=== PATIENT | male | born 1990 | race Caucasian/White ===

== ENCOUNTER 2021-01-18 20:35 | Emergency (ER) | payer OTHER, MEDICAID, SELFPAY ==
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
[2021-01-18 20:59] VITALS: BP 184/82; PULSE 100; RESP 18; TEMP 36.8; O2SAT 98; BMI 29.6
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
[2021-01-18] MEDS: Acetaminophen 325 MG TABLET 975 MG PO (22:36)
[2021-01-18] MEDS: Lidocaine 4 % Patch ADH..PATCH 1 PATCH TRANSDERMA (22:36)
== END 2021-01-19 00:29 | disposition home or self-care (01) ==
PROVIDERS: Emergency Provider Student in an Organized Health Care Education/Training Program
DX: S16.1XXA Strain of muscle, fascia and tendon at neck level, initial encounter (principal); S59.901A Unspecified injury of right elbow, initial encounter; M25.521 Pain in right elbow; M54.2 Cervicalgia; G44.309 Post-traumatic headache, unspecified, not intractable; V43.02XA Car driver injured in collision with other type car in nontraffic accident, initial encounter; Y93.9 Activity, unspecified; Y92.410 Unspecified street and highway as the place of occurrence of the external cause; Y99.9 Unspecified external cause status
CPT/HCPCS: 70450; 72125; 73080; 96372; 99284; J1885

== ENCOUNTER 2021-08-30 02:49 | Emergency (ER) | payer OTHER, SELFPAY ==
[2021-08-30 03:09] VITALS: BP 145/90; PULSE 100; RESP 16; TEMP 36.5; O2SAT 99; BMI 31.3
--- NOTE | 2021-08-30 04:13 | ED_ITS ---
HPI - Back Pain/Injury General Chief Complaint: Back Pain/Injury Stated Complaint: Back Pain Time Seen by Provider: 08/30/21 04:03 Source: patient Mode of arrival: ambulatory Limitations: no limitations History of Present Illness HPI Narrative: 31-year-old male who presents emergency department for evaluation of lower back pain x5 days. Patient states that he was having intercourse with his girlfriend and after having sex he developed lower back pain. He states that his girlfriend often gets kidney infections after having sex and he is concerned that he may now have a kidney fact since having sex with his gi rlfriend. He states that the pain is located in his lower back left side greater than right. He states the pain is an intermittent throbbing pain which is 7/10 at its worst. He states that his urine is now cloudy and has a foul odor to it. He denies dysuria but has had frequency. He denies any penile discharge. He denied fever, chills, nausea, vomiting. The patient states that he has a history of schizophrenia and has been compliant with his medications. He states that he does not want any pain medications. Related Data Allergies Allergy/AdvReac Type Severity Reaction Status Date / Time Penicillins [PENICILLINS] Allergy Unknown RASH Unverified 07/11/20 16:14 From [facility] Allergy Unknown UNKNOWN Uncoded 07/11/20 16:14 Review of Systems Review of Systems: Yes all other systems are reviewed and are negative [facility] Past Medical History [facility] Narrative: Past medical history: Schizophrenia. Past surgical history: None. Social history: He denies tobacco, alcohol and drug use. Medical History Back pain Social History Social History Advance Directives: No Advance Directives Information Provided: No Physical Exam Vital Signs: Vital Signs: Last Vital Signs Temp 98.4 F 08/30/21 04:37 Pulse 89 08/30/21 04:37 Resp 16 08/30/21 04:37 BP 158/89 H 08/30/21 04:37 Pulse Ox 99 08/30/21 03:09 Body Mass Index 31.3 Const: General: cooperative and no acute distress Orientation/consciousness: oriented to person and oriented to place Limitations: no limitations HENMT: Head: Yes normal to inspection, Yes normocephalic and Yes atraumatic Ears: external ears normal General nose exam: Normal external nose present Face and sinus: Yes normal facial exam Mouth: Normal oral and palatal mucosa present Throat: Yes posterior oropharynx normal Eyes: General: appearance normal, both eyes and all related structures Pupils: Equal, round and reactive pupils present Neck: Neck: Yes normal visual inspection, Yes no lymphadenopathy, Yes trachea midline and Yes supple Chest: Chest palpation & inspection: normal inspection of the chest and normal palpation of entire chest wall Resp: Effort & Inspection: normal respiratory effort and able to speak in complete sentences Auscultation: clear to auscultation bilaterally Cardio: Rate: regular rate Rhythm: regular rhythm Heart sounds: S1 normal heart sound present, S2 normal heart sound present and no murmurs GI: Inspection: Yes normal to inspection Palpation (GI): Soft to palpation, nontender and no guarding Auscultation: normal bowel sounds Back/Spine/Pelvis: Other: The patient has no vertebral tenderness, he does have tenderness palpation of the paraspinal muscles a lumbar sacral area, no spasm, no CVA tenderness. Skin: General skin exam: no rashes or lesions noted Neuro: General: oriented to person and oriented to place Cranial nerves: Yes CN's II-XII intact bilaterally and Yes Equal, round and reactive pupils present Cognition (Neuro): normal cognition Motor exam (neuro): 5/5 motor strength present throughout Extrem: General: Yes normal to inspection Psych: Appearance: grossly normal Speech and movement: Normal speech and movement present Affect: normal affect Attitude: cooperative Thought process: Normal thought process present Thought content: Normal thought content present Course Course Course Narrative: 31-year-old male who presents emergency department for evaluation of lower back pain x5 days, cloudy and foul-smelling urine, with symptoms starting after he had intercourse with his girlfriend. The patient's vital signs revealed an elevated blood pressure of 145/90 otherwise unremarkable. The patient's exam did reveal tenderness palpation of paraspinal muscles in the lumbar sacral area of his lower back. I did order a urinalysis and urine GC chlamydia. The patient does not want any pain medications at this time. 0539: The patient's urinalysis was unremarkable. Patient's presentation is more consistent with lower back strain and I did discuss this with him. The patient was advised to take Tylenol and ibuprofen for his pain. He is advised to use ice and heat as well. I did tell him that we tested him for gonorrhea and chlamydia and that these results will not be back today. MDM - Back Pain/Injury Lab Data Labs: Lab Results 08/30/21 Range/Units 04:32 Urine Color YELLOW Urine Appearance CLEAR Urine pH 5.5 (5.0-8.0) Ur Specific Pierre >= 1.030 H (1.005-1.025) Urine Protein NEG (NEG-TRACE) MG/DL Urine Glucose (UA) NEG (NEG) MG/DL Urine Ketones NEG (NEG) MG/DL Urine Blood NEG (NEG) Urine Nitrite NEG (NEG) Ur Leukocyte Esterase NEG (NEG) Discharge Plan Discharge Clinical Impression: Strain of lumbar region Patient Disposition: Home, Self-Care Instructions: Low Back Strain (ED) Additional Instructions: Your urinalysis was normal this is reassuring. This means that you do not have a kidney infection as the cause of your back pain. I did test your urine for gonorrhea and chlamydia, these are infections that you can get from having sex. These tests will be back in 2-3 days and the emergency department will call you if they are positive and you need treatment. At this time, I believe that your back pain is due to muscle strain of your lower back muscles. Back Pain Discharge Instructions: Take Motrin (ibuprofen) 200 mg pills, 3 pills every 6 hours as needed for pain. Take Tylenol (acetaminophen) 500 mg pills, 2 pills every 6 hours as needed for pain. Apply ice for 15 minutes to the area that hurts on your back, then apply a heating a pad on low for 15 minutes. Do this 4-6 times a day to help reduce the pain in your back. Continue with normal activities as tolerated since staying in bed and not moving around will make your pain worse. You can also try over the counter lidocaine patches as directed on the box to help with the pain. Please return to the Emergency Department or see your doctor immediately if your symptoms get worse or if you develop any new symptoms that are concerning you. Follow up with your doctor in 2 day. Please read the other printed discharge instructions on back pain.
[2021-08-30 04:37] VITALS: BP 158/89; PULSE 89; RESP 16; TEMP 36.9
[2021-08-30 04:38] LABS: Appearance Urine CLEAR; Color Urine YELLOW; Glucose Urine UA NEG (NEG); Leukocyte Esterase Urine NEG (NEG); Nitrite Urine NEG (NEG); PH 5.5 (5.0-8.0); Specific Gravity - Urine >= 1.030 (1.005-1.025); Urine Blood NEG (NEG); Urine Ketones NEG (NEG); Urine Protein NEG (NEG-TRACE)
[2021-08-30 06:02] VITALS: BP 136/84; PULSE 77; RESP 16; TEMP 36.9; O2SAT 98
[2021-08-30 13:34] LABS: CT PCR NOT DETECTED (Not Detect.); NG PCR NOT DETECTED (Not Detect.)
== END 2021-08-30 06:33 | disposition home or self-care (01) ==
PROVIDERS: Emergency Provider Emergency Medicine Emergency Medical Services; PCP Internal Medicine
DX: M54.50 Low back pain, unspecified (principal); Z20.2 Contact with and (suspected) exposure to infections with a predominantly sexual mode of transmission
CPT/HCPCS: 81003; 87491; 87591; 99283; 99284

== ENCOUNTER 2022-01-31 18:17 | Emergency (ER) | payer OTHER, SELFPAY ==
--- NOTE | ~2022-01-31 | XR_ITS ---
EXAMINATION: XR FINGER, RIGHT CLINICAL INFORMATION: Pain, trauma COMPARISON: None TECHNIQUE: Three views of the right small finger. XR/XR finger RT min 2V FINDINGS/IMPRESSION: No acute fracture or dislocation. Joint spaces are maintained. Soft tissues are unremarkable.
[2022-01-31 18:26] VITALS: BP 122/71; PULSE 107; RESP 18; TEMP 36.6; O2SAT 98; BMI 30.4
--- NOTE | 2022-01-31 19:09 | ED_ITS ---
HPI - Extremity Problem General Chief complaint: Extremity Injury, Upper Stated complaint: fall/R hand INJ Time Seen by Provider: 01/31/22 19:09 Source: patient Mode of arrival: ambulatory History of Present Illness HPI Narrative: 31-year-old male no significant past medical history presenting to the ED complaining of right pinky finger pain s/p trip and fall VIDEO AND SOUND RECORDER. States was carrying groceries up the stairs and tripped over sandals falling on right hand, believes he hyperextended 5th digit. Denies head trauma or LOC. Denies numbness, tingling, weakness or injury to other area MD Complaint: extremity pain Onset (ago): hour(s) Related Data Allergies Allergy/AdvReac Type Severity Reaction Status Date / Time Penicillins [PENICILLINS] Allergy Unknown RASH Unverified 07/11/20 16:14 From [facility] Allergy Unknown UNKNOWN Uncoded 07/11/20 16:14 Review of Systems Review of Systems: Constitutional: No Weight loss, No Fever, No Chills ENT/Mouth: No Ear Pain, No Nasal Congestion, No sore throat, No Rhinorrhea, No Swallowing Difficulty Cardiovascular: No Chest Pain, No SOB Respiratory: No Cough Gastrointestinal: No Nausea, No Vomiting, No Diarrhea, No Constipation, No Abdominal pain Genitourinary:, No Dysuria, No Urinary Frequency, No Hematuria,No Flank Pain Musculoskeletal: + joint pain, No Myalgias, No Joint Swelling Skin: No Skin Lesions, No rash Neuro: No Weakness, No Numbness, No Paresthesias Yes all other systems are reviewed and are negative [facility] Past Medical History Attestation statement: The following information was validated with the patient. Medical History Back pain Social History Social History Advance Directives: No Advance Directives Information Provided: No Physical Exam Vital Signs: Vital Signs: Last Vital Signs Temp 98 F 01/31/22 18:26 Pulse 107 H 01/31/22 18:26 Resp 18 01/31/22 18:26 BP 122/71 01/31/22 18:26 Pulse Ox 98 01/31/22 18:26 BMI result Body Mass Index 30.4 Const: General: cooperative, healthy appearing and no acute distress Orientation/consciousness: patient oriented x3 Limitations: no limitations HEENT: Head: Yes normal to inspection Ears: hearing grossly normal bilaterally General nose exam: Normal external nose present Face and sinus: Yes normal facial exam Eyes: General: appearance normal, both eyes and all related structures EOM: EOMs intact bilaterally Neck: Neck: Yes normal visual inspection and Yes no meningeal signs Resp: Effort & Inspection: normal respiratory effort and no respiratory distress Cardio: Rate: regular rate Peripheral pulses: radial pulses present Skin: Rashes: no rashes Wounds: no wounds Neuro: General: patient oriented x3 and no meningeal signs Gait exam (Neuro): Normal gait present Extrem: Other: Right 5th digit with mild swelling, tender at MCP. No appreciable deformity. Upon flexion appears finger may dislocate/relocate. FROM intact. NV intact. Sensation intact to light touch. No snuffbox tenderness Course Course Course Narrative: XR finger RT min 2V FINDINGS/IMPRESSION: ? No acute fracture or dislocation. Joint spaces are maintained. Soft tissues are unremarkable. >> due to instability seen on physical exam concern for tendon injury. Finger splint applied and patient given hand follow-up MDM - Extremity (Nontraumatic) MDM Narrative Medical decision making narrative: 31-year-old male no significant past medical history presenting to the ED complaining of right pinky finger pain s/p trip and fall VIDEO AND SOUND RECORDER. On exam mildly tachycardic, anxious, NAD, physical exam as above. Concern for fracture vs dislocation vs tendon/ligamental injury/hyperextension injury Plan: X-rays Medical Records Attestation: I reviewed the patient's medical records. Lab Data Attestation: I reviewed the patient's lab results. Discharge Plan Discharge Clinical Impression: Finger injury Patient Disposition: Home, Self-Care Instructions: Finger Sprain (ED) Additional Instructions: Your x-rays unremarkable. You likely have a tendon injury. Please wear finger splint until you follow-up with the hand specialist, call Wednesday to make an appointment Take Tylenol and Motrin for pain/swelling. Ice. Return to the emergency department if pain becomes unbearable or area begins look infected Referrals: Shani Rees MD [Physician] - 5 days
== END 2022-01-31 20:19 | disposition home or self-care (01) ==
PROVIDERS: Emergency Provider Internal Medicine; PCP Internal Medicine
DX: S69.91XA Unspecified injury of right wrist, hand and finger(s), initial encounter (principal); W10.8XXA Fall (on) (from) other stairs and steps, initial encounter; Y93.89 Activity, other specified; Y92.038 Other place in apartment as the place of occurrence of the external cause; Y99.9 Unspecified external cause status
CPT/HCPCS: 29130; 73140; 99283

== ENCOUNTER 2022-02-17 07:22 | Outpatient (REF) | payer OTHER, SELFPAY ==
--- NOTE | ~2022-02-17 | XR_ITS ---
EXAMINATION: XR HAND, RIGHT CLINICAL INFORMATION: Pain COMPARISON: None TECHNIQUE: PA, lateral, and oblique views of the right hand. FINDINGS: Normal bony mineralization. No fracture or dislocation or arthropathy. No focal joint narrowing or erosive change. XR/XR hand RT min 3V IMPRESSION: Normal right hand.
== END 2022-02-17 07:23 | disposition home or self-care (01) ==
LOC: HO.HOSX 07:22
PROVIDERS: Visit Provider Physician Assistant
DX: S63.656A Sprain of metacarpophalangeal joint of right little finger, initial encounter (principal)
CPT/HCPCS: 73130; 99202

== ENCOUNTER 2022-06-16 16:21 | Emergency (ER) | payer OTHER, SELFPAY ==
--- NOTE | ~2022-06-16 | XR_ITS ---
EXAMINATION: XR CHEST CLINICAL INFORMATION: Chest pain COMPARISON: None TECHNIQUE: Frontal view of the chest was obtained. FINDINGS: The lungs are clear. No airspace consolidation, pleural effusion, or pneumothorax. The cardiomediastinal silhouette is within normal limits. No acute osseous injury. XR/XR chest 1V IMPRESSION: No acute pulmonary process.
--- NOTE | 2022-06-16 16:25 | ECG_ITS ---
Test Reason : CHEST PAIN Blood Pressure : / mmHG Vent. Rate : 098 BPM Atrial Rate : 098 BPM P-R Int : 150 ms QRS Dur : 086 ms QT Int : 296 ms P-R-T Axes : 036 059 -22 degrees QTc Int : 377 ms Normal sinus rhythm T wave abnormality, consider inferolateral ischemia Abnormal ECG No previous ECGs available Referred By: Generic ED Physician Electronically Signed By:CEZAR MIGUEL
[2022-06-16 16:26] VITALS: BP 146/82; PULSE 104; RESP 18; TEMP 37.4; O2SAT 98; BMI 31.3
[2022-06-16 16:45] LABS: MANUAL DIFF FLAG NO
[2022-06-16 16:49] LABS: Basophils Percent Auto 0.4 % (0-2); Eosinophils Absolute Auto 0.2 X10*3/uL (0.0-0.4); Eosinophils Percent Auto 1.7 % (0-4); Hematocrit 45.1 % (42.0-52.0); Hemoglobin 15.8 g/dl (14.0-18.0); Imm Gran Abs Auto 0.05 X10*3/uL (0.00-0.03); Imm Gran Pct Auto 0.5 % (0.0-0.4); Lymphocytes Absolute Auto 3.3 X10*3/uL (1.2-4.9); Lymphocytes Percent Auto 34.2 % (20-40); Mean Corpuscular Hemoglobin 29.9 pg (27.0-33.0); Mean Corpuscular Volume 85.4 fL (80.0-98.0); Mean Platelet Volume 9.3 fL (9.4-12.4); Monocytes Absolute Auto 0.6 X10*3/uL (0.1-1.2); Monocytes Percent Auto 6.1 % (2-11); Neutrophils Absolute Auto 5.5 x10*3/uL (2.0-8.3); Neutrophils Percent Auto 57.1 % (45-73); Platelet Count 283 X10*3/uL (160-400); Red Blood Count 5.28 X10*6/uL (4.60-5.80); White Blood Count 9.6 X10*3/uL (4.8-10.8)
[2022-06-16 17:14] LABS: Anion Gap 18 (12-20); Blood Urea Nitrogen 11 mg/dL (9-16); Carbon Dioxide 29 mmol/L (22-29); Chloride 98 mmol/L (96-108); Creatinine Clr Calc Pharmacy 146.3; Estimated Glomerular Filt Rate > 60; Glucose Random 116 mg/dL (60-115); Potassium 4.4 mmol/L (3.3-5.1); Sodium 141 mmol/L (135-145)
[2022-06-16 17:18] LABS: Troponin-I High Sensitivity < 3.5 ng/L (<3.5-35.0)
[2022-06-16 20:00] VITALS: BP 144/83; PULSE 91; RESP 16; TEMP 36.6; O2SAT 99
[2022-06-16 20:50] VITALS: BP 135/81; PULSE 86; RESP 19; O2SAT 97
--- NOTE | 2022-06-16 20:55 | ECG_ITS ---
Test Reason : INERTED T WAVES Blood Pressure : / mmHG Vent. Rate : 089 BPM Atrial Rate : 089 BPM P-R Int : 148 ms QRS Dur : 098 ms QT Int : 334 ms P-R-T Axes : 023 036 -10 degrees QTc Int : 406 ms Normal sinus rhythm Nonspecific T wave abnormality Abnormal ECG When compared with ECG of 16-JUN-2022 16:31, No significant change was found Referred By: Alisson Rodas Electronically Signed By:CEZAR MIGUEL
--- NOTE | 2022-06-16 21:02 | ED_ITS ---
HPI - Chest Pain General Chief Complaint: Chest Pain Stated Complaint: Chest Pain Time Seen by Provider: 06/16/22 20:51 Source: patient Mode of arrival: ambulatory Limitations: no limitations History of Present Illness HPI narrative: Patient comes to emergency room complaining of 6 months of intermittent chest tightness on the left side. Patient states that he has noticed it more over the last month, unrelated to exertion. Patient states it feels like a gassy sensation that he needs to shake off by punching his chest. Also, patient states that yesterday he had episodes of palpitations which self-resolved. At this time, patient is asymptomatic. Patient denies any cardiac history, no shortness of breath. Related Data Home Medications Medication Instructions Recorded Confirmed No Known Home Meds 02/17/22 02/17/22 Allergies Allergy/AdvReac Type Severity Reaction Status Date / Time Penicillins [PENICILLINS] Allergy Unknown RASH Verified 06/16/22 16:26 From CONCERTA Allergy Unknown UNKNOWN Uncoded 07/11/20 16:14 Review of Systems Review of Systems: Constitutional : No Weight loss, No Fever, No Chills, No Ni ght Sweats, No Fatigue, No Malaise ENT/Mouth : No Hearing loss, No Ear Pain, No Nasal Congestion, No Sinus Pain, No Hoarseness, No sore throat, No Rhinorrhea, No Swallowing Difficulty Eyes: No Eye Pain, No Swelling, No Redness, No Foreign Body, No Discharge, No Vision Changes Cardiovascular : Intermittent left chest tightness, No SOB, No Dyspnea on Exertion, No Orthopnea, No Edema, complaining of intermittent Palpitations Respiratory : No Cough, No Sputum, No Wheezing, No Smoke Exposure, No Dyspnea Gastrointestinal : No Nausea, No Vomiting, No Diarrhea, No Constipation, No abdominal Pain, No Hematochezia, No Melena Genitourinary : no irregular bleeding, No Dysuria, No Urinary Frequency, No Hematuria, No Urinary Incontinence, No Urgency, No Flank Pain, No Urinary Flow Changes, No Hesitancy Musculoskeletal : No joint pain, No Myalgias, No Joint Swelling Skin : No Skin Lesions, No rash Neuro : No Weakness, No Numbness, No Paresthesias, No Loss of Consciousness, No Dizziness, No Headache Psych : No Anxiety/Panic, No Depression, No SI/HI/AH/VH, No Social Issues, Heme/Lymph: No Bruising, No Bleeding,No Lymphadenopathy Endocrine : No Polyuria, No Polydipsia, No Temperature Intolerance COUNT INCLUDES THE [facility] Past Medical History Medical History Back pain Social History Social History Advance Directives: No Advance Directives Information Provided: No Physical Exam Vital Signs: Vital Signs: Last Vital Signs Temp 97.9 F 06/16/22 20:00 Pulse 86 06/16/22 20:50 Resp 19 06/16/22 20:50 BP 135/81 06/16/22 20:50 Pulse Ox 97 06/16/22 20:50 O2 Del Method 06/16/22 20:50 BMI result Body Mass Index 31.3 Const: Other: Appearance: Alert. Oriented X3. No acute distress. Eyes: Pupils equal, round and reactive to light. ENT: Pharynx normal. Neck: Normal inspection. Neck supple. No lymph nodes noted. No crepitus CVS: Normal heart rate and rhythm. Pulses normal. Normal S1 and S2 Respiratory: No respiratory distress. Breath sounds normal. No Wheezing. No rales Abdomen: Soft and nontender. No rigidity. No distention. Skin: Skin warm and dry. Normal skin color. Normal skin turgor. Extremities: No lower extremity edema. No Lacerations. No Rash Neuro: Oriented X 3. No motor deficit. No sensory deficit. Moving all extremities. No slurred speech. CN 2 through 12 grossly intact Psych: calm, cooperative, normal affect Course Course Course Narrative: Patient's EKG 1. Taken at 16:31 shows inverted T-waves in inferior leads and lateral leads V4 through V6. We do not have previous EKGs for comparison. EKG was repeated at 20:50, she shows the same abnormalities, no acute findings. First troponin negative, 2nd troponin negative as well. At this time, patient is asymptomatic. I discussed with the patient that if he continues having this symptoms, he would benefit from a Holter monitor evaluation. MDM - Chest Pain Lab Data Result diagrams: 06/16/22 16:41 06/16/22 16:41 Labs: Lab Results 06/16/22 06/16/22 06/16/22 Range/Units 16:41 16:41 16:41 WBC 9.6 (4.8-10.8) X10*3/uL RBC 5.28 (4.60-5.80) X10*6/uL Hgb 15.8 (14.0-18.0) g/dl Hct 45.1 (42.0-52.0) % MCV 85.4 (80.0-98.0) fL MCH 29.9 (27.0-33.0) pg MCHC 35.0 (31.0-36.0) g/dl RDW 12.0 (11.0-16.0) % Plt Count 283 (160-400) X10*3/uL MPV 9.3 L (9.4-12.4) fL Immature Gran % (Auto) 0.5 H (0.0-0.4) % Neut % (Auto) 57.1 (45-73) % Lymph % (Auto) 34.2 (20-40) % Hickman % (Auto) 6.1 (2-11) % Eos % (Auto) 1.7 (0-4) % Baso % (Auto) 0.4 (0-2) % Lymph # (Auto) 3.3 (1.2-4.9) X10*3/uL [place]ickman # (Auto) 0.6 (0.1-1.2) X10*3/uL Eos # (Auto) 0.2 (0.0-0.4) X10*3/uL Baso # (Auto) 0.0 (0.0-0.2) X10*3/uL Abs Immat Gran (auto) 0.05 H (0.00-0.03) X10*3/uL Absolute Neuts (auto) 5.5 (2.0-8.3) x10*3/uL Absolute Nucleated RBC 0.000 (0.0-0.012) X10*3/uL Nucleated RBC % (auto) 0.0 (0.0-0.2) /100WBC Sodium 141 (135-145) mmol/L Potassium 4.4 (3.3-5.1) mmol/L Chloride 98 (96-108) mmol/L Carbon Dioxide 29 (22-29) mmol/L Anion Gap 18 (12-20) BUN 11 (9-16) mg/dL Creatinine 0.80 (0.5-1.4) mg/dL Estim Creat Clear Calc 146.3 Estimated GFR > 60 Random Glucose 116 H (60-115) mg/dL Calcium 10.0 (8.4-10.2) mg/dL Troponin I High Sens < 3.5 (<3.5-35.0) ng/L 06/16/22 Range/Units 21:06 WBC (4.8-10.8) X10*3/uL RBC (4.60-5.80) X10*6/uL Hgb (14.0-18.0) g/dl Hct (42.0-52.0) % MCV (80.0-98.0) fL MCH (27.0-33.0) pg MCHC (31.0-36.0) g/dl RDW (11.0-16.0) % Plt Count (160-400) X10*3/uL MPV (9.4-12.4) fL Immature Gran % (Auto) (0.0-0.4) % Neut % (Auto) (45-73) % Lymph % (Auto) (20-40) % Hickman % (Auto) (2-11) % Eos % (Auto) (0-4) % Baso % (Auto) (0-2) % Lymph # (Auto) (1.2-4.9) X10*3/uL Hickman # (Auto) (0.1-1.2) X10*3/uL Eos # (Auto) (0.0-0.4) X10*3/uL Baso # (Auto) (0.0-0.2) X10*3/uL Abs Immat Gran (auto) (0.00-0.03) X10*3/uL Absolute Neuts (auto) (2.0-8.3) x10*3/uL Absolute Nucleated RBC (0.0-0.012) X10*3/uL Nucleated RBC % (auto) (0.0-0.2) /100WBC Sodium (135-145) mmol/L Potassium (3.3-5.1) mmol/L Chloride (96-108) mmol/L Carbon Dioxide (22-29) mmol/L Anion Gap (12-20) BUN (9-16) mg/dL Creatinine (0.5-1.4) mg/dL Estim Creat Clear Calc Estimated GFR Random Glucose (60-115) mg/dL Calcium (8.4-10.2) mg/dL Troponin I High Sens < 3.5 (<3.5-35.0) ng/L Discharge Plan Discharge Clinical Impression: Atypical chest pain, Palpitations Patient Disposition: Home, Self-Care Instructions: Heart Palpitations (DC) Prescriptions: No Action No Known Home Meds
[2022-06-16 21:31] LABS: Troponin-I High Sensitivity < 3.5 ng/L (<3.5-35.0)
[2022-06-16 22:37] VITALS: BP 145/91; PULSE 91; RESP 16; O2SAT 99
--- NOTE | 2022-06-16 22:44 | PC.NURSE ---
Pt. seen today c/o tightness in chest. Denies pain other than the tightness. Pt. will follow-up with a aeronautical engineering professor.
== END 2022-06-16 22:48 | disposition home or self-care (01) ==
PROVIDERS: Emergency Provider Emergency Medicine; PCP Internal Medicine
DX: R07.89 Other chest pain (principal); R00.2 Palpitations; Z79.899 Other long term (current) drug therapy
CPT/HCPCS: 36415; 71045; 80048; 84484; 85025; 93005; 99283; 99284

== ENCOUNTER 2024-10-30 12:39 | Outpatient (REF) | payer OTHER, SELFPAY ==
[2024-10-30 13:46] LABS: MANUAL DIFF FLAG NO
[2024-10-30 13:54] LABS: Basophils Absolute Auto 0.1 X10*3/uL (0.0-0.2); Basophils Percent Auto 0.6 % (0-2); Eosinophils Absolute Auto 0.1 X10*3/uL (0.0-0.4); Eosinophils Percent Auto 1.2 % (0-4); Hematocrit 47.5 % (42.0-52.0); Hemoglobin 16.5 g/dl (14.0-18.0); Imm Gran Abs Auto 0.03 X10*3/uL (0.00-0.03); Imm Gran Pct Auto 0.3 % (0.0-0.4); Lymphocytes Absolute Auto 3.9 X10*3/uL (1.2-4.9); Lymphocytes Percent Auto 34.4 % (20-40); Mean Corpuscular HGB Conc 34.7 g/dl (31.0-36.0); Mean Corpuscular Hemoglobin 29.8 pg (27.0-33.0); Mean Corpuscular Volume 85.7 fL (80.0-98.0); Mean Platelet Volume 9.7 fL (9.4-12.4); Monocytes Absolute Auto 0.7 X10*3/uL (0.1-1.2); Monocytes Percent Auto 6.2 % (2-11); Neutrophils Absolute Auto 6.4 x10*3/uL (2.0-8.3); Neutrophils Percent Auto 57.3 % (45-73); Platelet Count 343 X10*3/uL (160-400); Red Blood Count 5.54 X10*6/uL (4.60-5.80); Red Cell Distribution Width 12.4 % (11.0-16.0); White Blood Count 11.3 X10*3/uL (4.8-10.8)
[2024-10-30 14:08] LABS: Estimated Average Glucose 97 mg/dL; Hemoglobin A1C 136.2575 umol/L; Total Hemoglobin (HGBA1C) 4343.8073 umol/L
[2024-10-30 14:53] LABS: Alanine Aminotransferase 67 U/L (0-40); Albumin Level 4.9 g/dL (3.5-5.0); Anion Gap 14 (12-20); Aspartate Amino Transferase 38 U/L (5-37); Blood Urea Nitrogen 16 mg/dL (9-16); Calcium 9.8 mg/dL (8.4-10.2); Carbon Dioxide 26 mmol/L (22-29); Chloride 105 mmol/L (96-108); Cholesterol 244 mg/dL (<200); Estimated Glomerular Filt Rate > 60; Glucose Random 97 mg/dL (60-115); HDL Cholesterol 30 mg/dL (>40); LDL Cholesterol Calculated 142 mg/dL (<100); Potassium 3.7 mmol/L (3.3-5.1); Sodium 141 mmol/L (135-145); Triglycerides 363 mg/dL (<150)
[2024-10-30 15:21] LABS: Alkaline Phosphatase 73 U/L (39-117); Thyroid Stimulating Hormone 1.29 uIU/mL (0.32-4.0)
== END 2024-10-30 12:40 | disposition home or self-care (01) ==
LOC: HO.HHCL 12:39
PROVIDERS: Visit Provider Psychiatry & Neurology Psychiatry
DX: Z79.899 Other long term (current) drug therapy (principal)
CPT/HCPCS: 36415; 80053; 80061; 83036; 84439; 84443; 85025

== ENCOUNTER 2025-03-22 10:12 | Emergency (ER) | payer OTHER, SELFPAY ==
[2025-03-22 10:17] VITALS: BP 146/93; PULSE 95; RESP 16; TEMP 36.1; O2SAT 95; BMI 30.4
[2025-03-22 10:39] LABS: Appearance Urine Clear; Color Urine Yellow; Glucose Urine UA Negative (Negative); Leukocyte Esterase Urine Negative (Negative); Nitrite Urine Negative (Negative); PH 5.5 (5.0-9.0); Specific Gravity - Urine 1.025 (1.005-1.025); Urine Blood Negative (Negative); Urine Ketones Trace mg/dL (Negative); Urine Protein Negative (Neg-Trace)
--- NOTE | 2025-03-22 10:41 | ED.ABDPAIN ---
HPI - Abdominal Pain General Chief Complaint: Abdominal Pain Stated Complaint: l side pain Time Seen by Provider: 03/22/25 10:39 Source: patient Mode of arrival: ambulatory Limitations: no limitations History of Present Illness ED Provider: ROCAEL JOHNSON PA-C HPI narrative: 34 year old male presents to the ED today for evaluation of LUQ abdominal discomfort x2 years, worsening over the last week. Describes this as a dull discomfort. No radiation. Reports discomfort is worse with eating so he refrains from eating. Reports an episode of greasy stool 1 week ago. Bowel movements have otherwise been normal. Reports nausea without vomiting. States he was evaluated back in 2021, told he had high triglycerides and was started on fenofibrate. States he self discontinued this medication approximately 1 year ago. He reports concern for his pancreas. States there something weird going on . He denies any EtOH consumption. Denies illicit substance use. Denies fever, chills, vomiting, diarrhea, constipation, flank pain, urinary symptoms. Related Data Home Medications ?Medication ?Instructions ?Recorded ?Confirmed No Known Home Meds 02/17/22 02/17/22 Allergies Allergy/AdvReac Type Severity Reaction Status Date / Time Penicillins [PENICILLINS] Allergy Unknown RASH Verified 03/22/25 10:20 From CONCERTA Allergy Unknown UNKNOWN Uncoded 03/22/25 10:20 Review of Systems Review of Systems Yes all other systems are reviewed and are negative PMFSH Past Medical History Attestation statement: The following information was validated with the patient. Source: old records reviewed and nursing notes reviewed Medical History Back pain Social History Social History Advance Directives: No Advance Directives Information Provided: Yes Physical Exam ED Vital Signs: Vital Signs - 24 hr 03/22/25 10:17 03/22/25 11:54 Temperature 96.9 F 96.9 F Pulse Rate 95 95 Respiratory Rate 16 16 Blood Pressure 146/93 H 146/93 H Pulse Oximetry 95 95 Oxygen Delivery Method Room Air Room Air BMI result Body Mass Index 30.4 hypertensive, vitals are otherwise wnl General: Well appearing, in no acute distress. Skin: Warm, dry, intact. No rashes or lesions. Head: Normocephalic, atraumatic. EENT: Hearing is intact b/l. Conjunctiva clear. Sclera is anicteric. PERRLA. EOM intact. Moist mucous membranes.? Cardiac: Chest wall symmetric. RRR Lungs: Normal respiratory effort without accessory muscle use. CTA bilaterally Abdomen: Soft, nondistended, mildly tender to palpation of left upper quadrant, without rebound or guarding. Active bowel sounds x4. No CVAT. Back: No midline spinous or paraspinal tenderness. No step off deformity. Ext: Upper and lower extremities atraumatic, without tenderness, deformity, swelling or erythema Neuro: AOx3. Normal speech. Ambulating with steady gait. Psych: odd affect, avoiding eye contact Course Course Course Narrative: [facility] plans staff officer was contacted by the lab stating patient's blood work hemolyzed and needed to be recollected. Patient informed. refusing re-draw of blood work. he is currently in a hallway bed. he states he is refusing blood work until he is placed in a room. supervisor propellant charge loading aware, informed patient that we do not have an open rooms available for him to be placed in at this time. patient visibly upset yelling at staff. stating that he is going to another hospital. declining all further work up at our facility. discussed risks associated with leaving our facility without receiving work up or any subsequent treatment that may be warranted. he verbalizes understanding, will be signing out AMA. Medical Decision Making Medical Decision Making MDM Narrative: 34 year old male presents to the ED today for evaluation of LUQ abdominal discomfort x2 years, worsening over the last week. hypertensive, vitals are otherwise wnl. he is well appearing and in NAD. on exam, abdomen is soft, nondistended, mildly tender to palpation of left upper quadrant without rebound or guarding. Active bowel sounds x4. No CVAT bilaterally. Differential diagnosis includes pancreatitis, biliary colic, renal colic, nephrolithiasis, gastroenteritis, gastritis, PUD. Abdominal exam without peritoneal signs. No evidence of acute abdomen at this time. Well appearing. Moderate suspicion for acute hepatobiliary disease (including acute cholecystitis). Less likely to represent perforated ulcer/ GI bleed, acute infectious processes (pneumonia, hepatitis, pyelonephritis), atypical appendicitis, vascular catastrophe, bowel obstruction or viscus perforation. Presentation not consistent with other acute, emergent causes of abdominal pain at this time. Plan: labs, UA, disposition Differential Diagnosis Differential Diagnoses: The differential diagnosis associated with the presentation includes as above Admission/Observation not indicated. Lab Data 03/22/25 10:42 03/22/25 10:42 Labs: Lab Results 03/22/25 03/22/25 Range/Units 10:27 10:42 WBC Cancelled RBC Cancelled Hgb Cancelled Hct Cancelled MCV Cancelled MCH Cancelled MCHC Cancelled RDW Cancelled Plt Count Cancelled MPV Cancelled Immature Gran % (Auto) Cancelled Neut % (Auto) Cancelled Lymph % (Auto) Cancelled Mellette % (Auto) Cancelled Eos % (Auto) Cancelled Baso % (Auto) Cancelled Lymph # (Auto) Cancelled Mellette # (Auto) Cancelled Eos # (Auto) Cancelled Baso # (Auto) Cancelled Abs Immat Gran (auto) Cancelled Absolute Neuts (auto) Cancelled Absolute Nucleated RBC Cancelled Nucleated RBC % (auto) Cancelled Sodium Cancelled Potassium Cancelled Chloride Cancelled Carbon Dioxide Cancelled Anion Gap Cancelled BUN Cancelled Creatinine Cancelled Estim Creat Clear Calc Cancelled Estimated GFR Cancelled Random Glucose Cancelled Calcium Cancelled Total Bilirubin Cancelled AST Cancelled ALT Cancelled Alkaline Phosphatase Cancelled Total Protein Cancelled Albumin Cancelled Triglycerides Cancelled Lipase Cancelled Urine Color Yellow Urine Appearance Clear Urine pH 5.5 (5.0-9.0) Ur Specific [place] 1.025 (1.005-1.025) Urine Protein Negative (Neg-Trace) mg/dL Urine Glucose (UA) Negative (Negative) mg/dL Urine Ketones Trace (Negative) mg/dL Urine Blood Negative (Negative) Urine Nitrite Negative (Negative) Ur Leukocyte Esterase Negative (Negative) External Record Review External record reviewed: Inpatient record Social Determinants Patient?s care significantly limited by Social Determinants of Health including: Other Social Determinant of Health Critical Care Time Critical Care Time Critical Care Time: No Discharge Plan Discharge Clinical Impression: Abdominal pain Patient Disposition: Left Against Medical Advice Prescriptions: No Action No Known Home Meds Stand Alone Forms: Against Medical Advice Interventions: ED Discharge Assessment Last Done: 03/22/25 11:54 Discharge Date/Time: 03/22/25 11:56 Print Language: New Zealander
--- OUTSIDE RECORDS SUMMARY | 2025-03-22 11:33 | XMS_ITS | Encounter Summary ---
Author Organization [facility] Address [address] [place] [address] Care Team Providers Care Administrative Associate Name Role Phone Carolyn Watt MD Primary Care Provider [phone] Reason for Visit * Reason Onset Date Comments Abdominal Pain 03/22/2025 Encounter Details Date Type Department Care Team (Late st Contact Info) Description 03/22/2025 Telephone Adult Medicine [facility] [address] [place] [id number] Carolyn Watt MD [address] [place] [address] Abdominal Pain Social History Tobacco Use Types Packs/Day Years Used Date Smoking Tobacco: Never Smokeless Tobacco: Former Alcohol Use Standard Drinks/Week Comments No 0 (1 standard drink = 0.6 oz pur e alcohol) Sex and Gender Information Value Date Recorded Sex Assigned at Not on file Legal Sex Male 9:04 AM EST Gender Identity Not on file Sexual Orientation Not on file documented as of this encounter Progress Notes * Letha Ferguson RN - 03/22/2025 11:05 AM EDT Pt is currently in the ER at [facility] ER. He feels his abdominal pain is r/t his pancreas. He states his lipids were elevated in the past. He states he has had abdominal pain for 1 week. He states after they adonis blood and a lumped form in his arm proximal to the IV site. He was encouraged to discuss this with the providers in the ER as he is there. He was instructed to call the office once he has been discharged for a follow up appointment. He isin agreement with this plan. * Samina Mckeon - 03/22/2025 10:50 AM EDT Patient returned call to triage * Jazmyne Walker RN - 03/22/2025 10:31 AM EDT Call to pt, message left for pt to return call to [facility] triage nurse. * Prasanna Jimenez - 03/22/2025 9:18 AM EDT Patient call requires triage: Symptoms patient is presenting: Patient called stating that he has been having pain in his abdominal region , states that when he sleeps on his left side it starts to hurt , states that the past weekthat he has been feeling a dull pressure pain starting on the left side around his stomach region ,would like to speak to nurse to get advice on what to do How long has patient had these symptoms?: the past few months , got worse the last week For ALL patients calling to schedule any appointment (routine, sick visit, follow up, consult, etc.) in the outpatient setting please ask the following questions: Do you have fever of higher than 101, sore throat with difficulty swallowing or severe shortness ofbreath? no If YES to any of these above symptoms, send a message to triage and do not book. Red dot. If no, an audio or video visit should be booked. Have you had close contact with someone with Coronavirus in the last 14 days? no Have you traveled abroad? no Have you traveled recently to another state outside of [place], [place], [place], [place], [place], [place], [place]? no o If yes, did you quarantine for 14 days or have a negative covid test? no If yes to any of the above, patient is not to be scheduled in office until after 14 day quarantine or negative covid test. If pain or injury related was it due to an accident at work or from a motor vehicle accident? If yes, date of accident/Injury: No If yes, gather 3rd republican insurance information Third Republican Information: not applicable PCP: Carolyn Watt MD Payor: / No coverage found. documented in this encounter Plan of Treatment Not on file documented as of this encounter Visit Diagnoses Not on filedocumented in this encounter Care Teams Administrative Associate Relationship Specialty Start Date End Date Carolyn Watt MD [address] [place] [id number] PCP - General Internal Medicine 04/16/16 documented as of this encounter
--- NOTE | 2025-03-22 11:53 | PC.NURSE ---
pt reporting to this charge nurse that he felt uncomfortable in the hallway, and had missed injection for blood attempts. informed pt that there were unfortunately no open bed in the ER at this time, pt requesting to leave AMA, declining blood work. provider and primary RN aware.
[2025-03-22 11:54] VITALS: BP 146/93; PULSE 95; RESP 16; TEMP 36.1; O2SAT 95
== END 2025-03-22 11:56 | disposition left against medical advice (07) ==
PROVIDERS: Physician Assistant Medical; Emergency Provider Emergency Medicine Emergency Medical Services; PCP Internal Medicine
DX: R10.12 Left upper quadrant pain (principal); R11.2 Nausea with vomiting, unspecified; Z53.29 Procedure and treatment not carried out because of patient's decision for other reasons
CPT/HCPCS: 36415; 80053; 81003; 83690; 85025; 99282

== ENCOUNTER 2025-04-17 12:06 | Emergency (ER) | payer OTHER, SELFPAY ==
[2025-04-17 12:19] VITALS: BP 152/99; PULSE 97; RESP 16; TEMP 36.7; O2SAT 97; BMI 32.6
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
[2025-04-17 12:54] VITALS: BP 152/99; PULSE 97; RESP 16; TEMP 36.7; O2SAT 97
--- OUTSIDE RECORDS SUMMARY | 2025-04-17 14:11 | XMS_ITS | Clinical Summary ---
Author Organization [address] Address [address] [place] [address] Phone Care Team Providers Care Survey Manager Name Role Phone Carolyn Watt MD Primary Care Provider [phone] Allergies Active Allergy Reactions Criticality Noted Date Comments Methylphenidate Rash 02/16/2006 Penicillins Hives 02/16/2006 Medications KRILL OIL ORAL Take by mouth. Active DULoxetine (CYMBALTA) [address] capsule Take 1 capsule (30 mg total) by mouth 1 (one) time each day in the morning. 06/24/20 22 Active fexofenadine (MARCO) 180 mg tablet Take 1 tablet (180 mg total) by mouth 1 (one) time each day. 01/08/20 17 Active fluticasone propionate (FLONASE) 50 mcg/actuation nasal spray Administer 2 sprays into each nostril 1 (one) time each day if needed (ALLERGY SYMPTOMS). 01/08/20 17 Active ketotifen fumarate (ZADITOR) 0.035 % ophthalmic solution Administer 1 drop into both eyes 2 (two) times a day if needed. 01/08/20 17 Active LORazepam (ATIVAN) 1 mg tablet Take 1 tablet (1 mg total) by mouth every 6 (six) hours if needed. Active risperiDONE (RisperDAL) 3 mg tablet Take 1 tablet (3 mg total) by mouth 2 (two) times a day. 12/17/19 21 Active fenofibrate (TRICOR) 145 mg tablet Take 1 tablet (145 mg total) by mouth 1 (one) time each day. 90 tablet 3 03/27/20 25 Active fenofibrate (TRICOR) 145 mg tablet Take 1 tablet (145 mg total) by mouth 1 (one) time each day. 07/30/20 22 025 Discontinued(Re order) omeprazole (PriLOSEC) [address] capsule Take 1 capsule (20 mg total) by mouth 1 (one) time each day if needed (GERD). 08/02/20 19 025 Discontinued Active Problems Problem Noted Date Diagnosed Date COVID-19 09/04/2021 High triglycerides 07/25/2020 Acute psychosis (CMS/HCC V24, CMS/HCC V28) 07/31 Overview (10/31/2024): 07/08 - Dr Okeefe, [phone] at [facility]. Risperdal started. 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; small L hydrocele on L, urology consult and ultrasound 11/06 Asthma 11/03/2012 Lactose intolerance 09/02/2011 Mild depression 09/02/2011 Overview (10/31/2024): Followed at [facility], [facility] prescriber Abena, as of 11/06 on Trazadone and daytrana Sleep disorder 05/23/2009 Overview (10/31/2024): On Ambien prescribed by Dr Mckinney 2008 As of 11/06trazadone 08/07 - risperdal, amitriptyline Condition not found 02/17/2006 Overview (10/31/2024): language-based LD, auditory processing disorder Attention deficit hyperactivity disorder (ADHD) 02/17/2006 Overview (10/31/2024): followed by child psychiatry at [facility], sees Jono Franco for counseling on stimulants since 2000, currently adderall 15 mg, sees Dr Mckinney Switched to Daytrana 07/02, stopped when he dropped out of December 2009, restarted 12/05 As of 11/06 followed at [facility], on trazadone and daytrana Allergic rhinitis 02/16/2006 Encounters Date Type Department Care Team Description 03/23/2025 12:35 PM EDT - 03/23/2025 11:59 PM EDT Hospital Encounter Radiology Department - [address] [phone] LUQ pain; Diarrhea, unspecified type Discharge Disposition: Home or Self Care 03/23/2025 11:30 AM EDT Office Visit Adult Medicine [address] [phone] Carolyn Watt MD LUQ pain (Primary Dx); Diarrhea, unspecified type; High triglycerides 03/22/2025 Telephone Adult Medicine [address] [phone] Carolyn Watt MD Abdominal Pain 03/22/2025 Telephone Adult Medicine [address] [phone] Carolyn Watt MD Abdominal Pain from Last 3 Months Immunizations Name Administration Dates Next Due DTP 02/22/1994, 3,1992,10/25 DTaP (Infanrix) 6wks to less than 7yo 09/19/1996 [id number] (Pentacel) 2mo to less than 5yo 12/23/1993,03/25/1993,1992,10/25 Hepatitis B (Hhwfczi-O-Bewsx , Recombivax HB-Adult) 19yo and older 02/08/2012 Hepatitis B Pediatric (Enger ix B; Recombivax HB) to less than 20 yo 09/02/2011,07/29/2011,03/25/1993,10/25,1992 Influenza trivalent, with pr eservative (Fluzone; Afluria) 6mo and older 09/02/2011 MMR, measles mumps and rubel la Live (Priorix; M-M-R II) 12mo and older 09/19/1996,12/23/1993 Meningococcal MCV4P 04/07/2007 OPV 09/19/1996, 5,1992,10/25 Pneumococcal polysaccharide 23 valent (Pneumovax 23) 2yo and older 08/28/1997 Td Tetanus diptheria (Tdvax) 7yo and older 01/08/2004 Tdap Tetanus diptheria acell ular pertussis (Boostrix; Adacel) 7yo and older 05/23/2009 Varicella live (Varivax) 12m o and older 09/01/2010,06/13/1996 Surgical History Surgery Date Site/Laterality Comments OTHER SURGICAL HISTORY PROCEDURE: DENIES PREVIOUS SURGERY Medical History Medical History Date Comments Allergic rhinitis, cause unspecified , 08/26 Wheezing , , , Herpes Acute psychosis ([facility] V24 , [facility] V28) 07/31/201407/08 - Dr Okeefe, [phone] a t [facility]. Risperdal started. Inpatient psych 07/25/14 Admission to [facility] inpt psych 08/07 Has a counselor Jono Franco at [facility] Migraines 06/06/201406/07 amitriptyli ne q HS; migranol nasal spray prn 06/07 - migranol d/c'd, trial imitrex prn EKG -nl QTc prior to increasing amitripyline dose MRI brain ordered - nl x small retention cysts in maxillary sinuses 07/08 - dose amitriptyline increased to 30 mg q HS, imitrex 25 mg prn Sleep disorder 05/23/2009 On Ambien prescr ibed by Dr Mckinney 2008 As of 11/06trazadone 08/07 - risperdal, amitriptyline Testicular abnormality 11/17/2012 Tunica al buginea cyst on R; small L hydrocele on L, urology consult and ultrasound 11/06 Attention deficit hyperactiv ity disorder (ADHD) 02/17/2006 followed by child psychiatry at [facility], sees Jono Franco for counseling on stimulants since 2000, currently adderall 15 mg, sees Dr Mckinney Switched to Daytrana 07/02, stopped when he dropped out of December 2009, restarted 12/05 As of 11/06 followed at [facility], on trazadone and daytrana Asthma 11/03/2012 Family History Medical History Relation Name Comments Diabetes Maternal Grandmother Nephrolithiasis Mother cardiac valv e issue Asthma Mother's side Relation Name Status Comments Father Alive Maternal Grandmother Mother Alive Mother's side Social History Tobacco Use Types Packs/Day Years Used Date Smoking Tobacco: Never Smokeless Tobacco: Former Tobacco Cessation:Counseling Given: Not Answered Alcohol Use Standard Drinks/Week Comments No 0 (1 standard drink = 0.6 oz pur e alcohol) Sex and Gender Information Value Date Recorded Sex Assigned at Not on file Legal Sex Male 9:04 AM EST Gender Identity Not on file Sexual Orientation Not on file Obstetrics History Last Filed Vital Signs Vital Sign Reading Time Taken Comments Blood Pressure 114/72 03/23/2025 11:30 AM EDT Pulse 101 03/23/2025 11:30 AM EDT Temperature 36.2 C (97.1 F) 03/23/2025 11:30 AM EDT Respiratory Rate 16 03/23/2025 11:3 0 AM EDT Oxygen Saturation 98% 03/23/2025 11: 30 AM EDT Inhaled Oxygen Concentration - - Weight 89.8 kg (197 lb 14.4 oz) 025 11:30 AM EDT Height 172.7 cm (5' 8 ) 03/23/2025 11:3 0 AM EDT Body Mass Index 30.09 03/23/2025 11:30 AM EDT Plan of Treatment Health Maintenance Due Date Last Done Comments Pneumococcal Vaccine: Pediatrics (0 to 5 Years) and At-Risk Patients (6 to 64 Years) (2 of 2 - PCV) 08/28/1998 08/28/1997 DTaP,Tdap,and Td Vaccines (8 - Td or Tdap) 05/23/2019 05/23/2009, 01/08/2004, 09/19/1996, Additional history exists Depression Screening 09/27/2022 Medicare Annual Wellness Visit 09/27/2022 Social Influencers of Health Screening 09/27/2022 COVID-19 Vaccine ( season) 2024 Influenza Vaccine (Season Ended) 2025 09/02/2011 Cholesterol Screening (Lipid Panel) 03/23/2030 03/23/2025, 03/23/2025, 07/10/2022 HIB Vaccines Completed 12/23/1993, 10/1992, 1992, Additional history exists IPV Vaccines Completed 09/19/1996, 10/1994, 12/23/1993, Additional history exists MMR Vaccines Completed 09/19/1996, 12/23/1993 Meningococcal ACWY Vaccine Aged Out 04/07/2007 N o longer eligible based on patient's age to complete this topic Varicella Vaccines Completed 09/01/2010, 06/13/1996 Hepatitis B Vaccines Completed 02/08/2012, 09/02/2011, 07/29/2011, Additional history exists HIV Screening Completed 12/05/2020 Hepatitis C Screening Completed 12/05/2020 HPV Vaccines Aged Out No longer eligi ble based on patient's age to complete this topic Hepatitis A Vaccines Aged Out No long er eligible based on patient's age to complete this topic Meningococcal B Vaccine Aged Out No l onger eligible based on patient's age to complete this topic RSV Immunization Patients Under 20 months Aged Out No longer eligible based on patient's age to complete this topic Procedures Procedure Name Priority Date/Time Associated Diagnosis Comments US ABDOMEN COMPLETE Routine 03/23/2025 1 2:58 PM EDT LUQ pain Diarrhea, unspecified type LDL CHOLESTEROL, DIRECT Routine 03/23/2025 12:14 PM EDT High triglycerides CBC WITH AUTO DIFFERENTIAL Routine 03/23/2025 12:14 PM EDT LUQ pain Diarrhea, unspecified type LIPID PANEL WITH REFLEX TO DIRECT LDL Routine 03/23/2025 12:14 PM EDT High triglycerides CBC AND DIFFERENTIAL Routine 03/23/2025 12:14 PM EDT LUQ pain Diarrhea, unspecified type COMPREHENSIVE METABOLIC PANEL Routine 03/23/2025 12:14 PM EDT LUQ pain Diarrhea, unspecified type HEPATITIS C SCREENING Routine 12/05/2020 HIV SCREENING Routine 12/05/2020 from Last 3 Months or Most Recently Relevant to Health Maintenance Results * US Abdomen Complete (03/23/2025 12:58 PM EDT) Anatomical Region Laterality Modality Body Ultrasound 03/23/2025 1:24 PM EDT Impressions 03/23/2025 1:26 PM EDT 1. No acute sonographic abnormalities. 2. Hepatomegaly with sonographic features of hepatic steatosis. -------- FINAL REPORT -------- Dictated By: Skip Bryson Dictated Date: 03/23/2025 13:24 ET Assigned Physician: Skip Bryson Reviewed and Electronically Signed By: Skip Bryson Signed Date: 03/23/2025 13:26 ET Workstation ID: [id number] Transcribed By: Self Edit Transcribed Date: 03/23/2025 13:24 ET Narrative 03/23/2025 1:26 PM EDT EXAM: US ABDOMEN COMPLETE COMPARISON: None HISTORY: LUQ pain TECHNIQUE: Ultrasound examination of the abdomen was performed and multiple static images obtained. FINDINGS: PANCREAS: Visualized portions of the pancreas are unremarkable. LIVER: Hepatomegaly measuring 18.2 cm. Diffusely increased echogenicity compatible with hepatic steatosis. No focal lesion demonstrated in the provided images. Main Portal Vein: Patent with normal direction of flow. GALLBLADDER/BILIARY: Gallbladder: No gallstones or gallbladder wall thickening. Biliary: No biliary ductal dilatation. The common bile duct measures 0.3 cm. SPLEEN: The spleen measures 12.1 cm in sagittal dimension. Grossly unremarkable. KIDNEYS: Right kidney measures 12.8 cm in sagittal dimension. Left kidney measures 12.2 cm in sagittal dimension. No renal stones or hydronephrosis on either side. Small cyst in the upper pole of the left kidney measures 0.8 cm. MIDLINE VASCULATURE: The visualized IVC is patent. The aorta is visualized. The maximum visualized aortic diameter is 1.9 cm. Procedure Note Skip Bryson MD - 03/23/2025 EXAM: US ABDOMEN COMPLETE COMPARISON: None HISTORY: LUQ pain TECHNIQUE: Ultrasound examination of the abdomen was performed andmultiple static images obtained. FINDINGS: PANCREAS: Visualized portions of the pancreas are unremarkable. LIVER: Hepatomegaly measuring 18.2 cm. Diffusely increased echogenicitycompatible with hepatic steatosis. No focal lesion demonstrated in theprovided images. Main Portal Vein: Patent with normal direction of flow. GALLBLADDER/BILIARY: Gallbladder: No gallstones or gallbladder wall thickening. Biliary: No biliary ductal dilatation. The common bile duct measures 0.3cm. SPLEEN: The spleen measures 12.1 cm in sagittal dimension. Grosslyunremarkable. KIDNEYS: Right kidney measures 12.8 cm in sagittal dimension. Left kidney aakutuju69.2 cm in sagittal dimension. No renal stones or hydronephrosis oneither side. Small cyst in the upper pole of the left kidney measures 0.8cm. MIDLINE VASCULATURE: The visualized IVC is patent. The aorta isvisualized. The maximum visualized aortic diameter is 1.9 cm. IMPRESSION: 1. No acute sonographic abnormalities. 2. Hepatomegaly with sonographic features of hepatic steatosis. -------- FINAL REPORT -------- Dictated By: Skip Bryson Dictated Date: 03/23/2025 13:24 ET Assigned Physician: Skip Bryson Reviewed and Electronically Signed By: Skip Bryson Signed Date: 03/23/2025 13:26 ET Workstation ID: [id number] Transcribed By: Self Edit Transcribed Date: 03/23/2025 13:24 ET us Carolyn Watt MD IM US PROCEDURES Final Result * (ABNORMAL) Lipid panel with reflex to direct LDL (03/23/2025 12:14 PM EDT) Cholesterol 211(H) 0 - 200 mg/dL LAB CHEMISTRY METHOD 03/23/2025 5:51 PM EDT [facility] Triglycerides 544(H) 0 - 150 mg/dL LAB CHEMISTRY METHOD 03/23/2025 5:51 PM EDT [facility] HDL 35(L) >=40 mg/dL LAB CHEMISTRY METHOD 03/23/2025 5:51 PM EDT [facility] LDL Calculated LAB CHEMISTRY METHOD 03/23/2025 5:51 PM EDT [facility] Comment: Unable to calculate when triglycerides >400 mg/dL. Triglyceride value is >= 500. Calculated LDL is not meaningful. Direct LDL has been added. VLDL Cholesterol Jay LAB CHEMISTRY METHOD 03/23/2025 5:51 PM EDT [facility] Comment:Unable to calculate when triglycerides >400 mg/dL. Non HDL Chol. (LDL+VLDL) LAB CHEMISTRY METHOD 03/23/2025 5:51 PM EDT [facility] Comment:Unable to calculate when triglycerides >400 mg/dL. Chol/HDL Ratio 6.0(H) 0.0 - 4.4 LAB CHEMISTRY METHOD 03/23/2025 5:51 PM T [facility] Blood Venous blood specimen / Unknown Venipuncture / Unknown 03/23/2025 12:14 PM EDT 03/23/2025 12:14 PM EDT us Carolyn Watt MD LAB BLOOD ORDERABLES Final Resul t [facility] [address] [place] [address], * CBC auto differential (03/23/2025 12:14 PM EDT) WBC 9.8 4.8 - 10.8 K/[facility] LAB HEMETOLOGY METHOD 03/23/2025 5:32 PM EDT [facility] RBC 5.40 4.50 - 5.50 M/mcL LAB HEMETOLOGY METHOD 03/23/2025 5:32 PM EDT [facility] Hemoglobin 16.5 13.5 - 17.5 g/dL LAB HEMETOLOGY METHOD 03/23/2025 5:32 PM EDT [facility] Hematocrit 47.3 42.0 - 54.0 % LAB HEMETOLOGY METHOD 03/23/2025 5:32 PM EDT [facility] MCV 87.6 79.0 - 98.0 FL LAB HEMETOLOGY METHOD 03/23/2025 5:32 PM EDT [facility] MCH 30.6 27.0 - 32.0 pcg LAB HEMETOLOGY METHOD 03/23/2025 5:32 PM EDT [facility] MCHC 34.9 32.0 - 37.0 g/dL LAB HEMETOLOGY METHOD 03/23/2025 5:32 PM EDT [facility] RDW 12.4 11.0 - 15.0 % LAB HEMETOLOGY METHOD 03/23/2025 5:32 PM EDT [facility] Platelets 303 130 - 400 K/mcL LAB HEMETOLOGY METHOD 03/23/2025 5:32 PM EDT [facility] MPV 10.2 7.0 - 11.0 FL LAB HEMETOLOGY METHOD 03/23/2025 5:32 PM EDT [facility] NRBC 0.0 <1.0 % LAB HEMETOLOGY METHOD 03/23/2025 5:32 PM EDT [facility] NRBC Absolute 0.00 <0.10 K/mcL LAB HEMETOLOGY METHOD 03/23/2025 5:32 PM EDT [facility] Neutrophils Relative 58.1 % LAB HEMETOLOGY METHOD 03/23/2025 5:32 PM EDT [facility] Lymphocytes Relative 33.2 % LAB HEMETOLOGY METHOD 03/23/2025 5:32 PM EDT [facility] Monocytes Relative 6.7 % LAB HEMETOLOGY METHOD 03/23/2025 5:32 PM EDT [facility] Eosinophils Relative 1.0 % LAB HEMETOLOGY METHOD 03/23/2025 5:32 PM EDT [facility] Basophils Relative 0.7 % LAB HEMETOLOGY METHOD 03/23/2025 5:32 PM EDT [facility] Immature Granulocytes Relative 0.3 % LAB HEMETOLOGY METHOD 03/23/2025 5:32 PM EDT [facility] Neutrophils Absolute 5.71 1.50 - 7.00 K/mcL LAB HEMETOLOGY METHOD 03/23/2025 5:32 PM [facility] Lymphocytes Absolute 3.27 1.00 - 5.00 K/mcL LAB [facility] Monocytes Absolute 0.66 0.20 - 1.00 K/mcL LAB HEMETOLOGY METHOD 03/23/2025 5:32 PM [facility] Eosinophils Absolute 0.10 0.00 - 0.50 K/mcL LAB HEMETOLOGY METHOD 03/23/2025 5:32 PM [facility] Basophils Absolute 0.07 0.00 - 0.20 K/mcL LAB HEMETOLOGY METHOD 03/23/2025 5:32 PM [facility] Immature Granulocytes Absolute 0.03 0.00 - 0.03 K/mcL LAB HEMETOLOGY METHOD 03/23/2025 5:32 PM [facility] Blood Venous blood specimen / Unknown Venipuncture / Unknown 03/23/2025 12:14 PM EDT 03/23/2025 12:14 PM EDT Carolyn Watt MD LAB BLOOD ORDERABLES Final Resul t Performing Organization Address [facility]/ZIP Co de Phone Number [facility] [address] [place] [address], [place] [phone] * LDL cholesterol, direct (03/23/2025 12:14 PM EDT) LDL Direct 91 <=100 mg/dL LAB CHEMISTRY METHOD 03/23/2025 6:01 PM EDT [facility] Blood Venous blood specimen / Unknown Venipuncture / Unknown 03/23/2025 12:14 PM EDT 03/23/2025 12:14 PM EDT Carolyn Watt MD LAB BLOOD ORDERABLES Final Resul t Performing Organization Address [facility] Co de Phone Number [facility] [address] [place] [address], [place] [phone] * (ABNORMAL) Comprehensive metabolic panel (03/23/2025 12:14 PM EDT) Pathologist [facility] Sodium 135 133 - 145 mmol/L LAB CHEMISTRY METHOD 03/23/2025 5:46 PM T [facility] Potassium 3.7 3.5 - 5.5 mmol/L LAB CHEMISTRY METHOD 03/23/2025 5:46 PM EDT [facility] Chloride 101 96 - 110 mmol/L LAB CHEMISTRY METHOD 03/23/2025 5:46 PM EDT [facility] CO2 27 21 - 32 mmol/L LAB CHEMISTRY METHOD 03/23/2025 5:46 PM EDT [facility] Anion Gap 7 3 - 11 LAB CHEMISTRY METHOD 03/23/2025 5:46 PM [facility] Glucose 97 70 - 100 mg/dL LAB CHEMISTRY METHOD [facility]/23[facility]25 [facility] BUN 15 5 - 25 mg/dL LAB CHEMISTRY METHOD 03/23/2025 5:46 PM [facility] Creatinine 0.94 0.70 - 1.30 mg/dL LAB CHEMISTRY METHOD 03/23/2025 5:46 PM [facility] eGFR 110 >=60 mL/min/1. 73m2 LAB CHEMISTRY METHOD 03/23/2025 5:46 PM [facility] Comment:Calculation based on the Chronic Kidney Disease Epidemiology Collaboration (CKD-EPI) equation refit without adjustment for race. BUN/Creatinine Ratio 16.0 LAB CHEMISTRY METHOD 03/23/2025 5:46 PM [facility] Calcium 10.0 8.5 - 10.5 mg/dL LAB CHEMISTRY METHOD 03/23/2025 5:46 PM [facility] AST (SGOT) 20 10 - 42 unit/L LAB CHEMISTRY METHOD 03/23/2025 5:46 PM [facility] ALT (SGPT) 50 10 - 60 unit/L LAB CHEMISTRY METHOD 03/23/2025 5:46 PM [facility] Alkaline Phosphatase 81 42 - 121 unit/L LAB CHEMISTRY METHOD 03/23/2025 5:46 PM [facility] Total Protein 9.0(H) 6.0 - 8.0 g/dL LAB CHEMISTRY METHOD 03/23/2025 5:46 PM [facility] Albumin 4.9 3.2 - 5.0 g/dL LAB CHEMISTRY METHOD 03/23/2025 5:46 PM [facility] Total Bilirubin 0.9 0.0 - 1.4 mg/dL LAB CHEMISTRY METHOD 03/23/2025 5:46 PM [facility] Blood Venous blood specimen / Unknown Venipuncture / Unknown 03/23/2025 12:14 PM EDT 03/23/2025 12:14 PM EDT us Carolyn Watt MD LAB BLOOD ORDERABLES Final Resul t [facility] [address] [place] [address], [place] [phone] * HIV Screening (12/05/2020) HIV Screening Abstracted us Historical Provider HEALTH MAINTENANCE Final Result * Hepatitis C Screening (12/05/2020) Hepatitis C Screening Abstracted us Historical Provider HEALTH MAINTENANCE Final Result from Last 3 Months or Most Recently Relevant to Health Maintenance Insurance [employer] Member Subscriber Plan / Payer (Ef fective 2018-Present) Name:PRITESH MONSON JR Relation to Subscriber:Self Name:Pritesh Monson Jr. Payer ID:[id number] Group ID:[id number] Type:Not on file Address: [address] [facility] [place] [address] Care Teams Survey Manager Relationship Specialty Start Date End Date Carolyn Watt MD [address] [place] [address] PCP - General Internal Medicine 04/16/16
== END 2025-04-17 12:55 | disposition home or self-care (01) ==
PROVIDERS: Emergency Provider Emergency Medicine; PCP Internal Medicine
DX: S16.1XXA Strain of muscle, fascia and tendon at neck level, initial encounter (principal); S29.012A Strain of muscle and tendon of back wall of thorax, initial encounter; S50.12XA Contusion of left forearm, initial encounter; S40.011A Contusion of right shoulder, initial encounter; V49.9XXA Car occupant (driver) (passenger) injured in unspecified traffic accident, initial encounter; M62.830 Muscle spasm of back; Y93.89 Activity, other specified; Y92.410 Unspecified street and highway as the place of occurrence of the external cause; Y99.9 Unspecified external cause status
CPT/HCPCS: 99282; 99283